=== PATIENT | female | born 1980 | race Caucasian/White ===

== ENCOUNTER 2018-05-10 17:56 | Emergency (ER) | payer OTHER ==
[2018-05-10] MEDS ORDERED: NORCO 5-325 TA1 EACH PO (20:53)
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
== END 2018-05-10 21:08 | disposition home or self-care (01) ==
LOC: ED 17:56
DX: M79.604 Pain in right leg (principal); V49.9XXA Car occupant (driver) (passenger) injured in unspecified traffic accident, initial encounter; Z88.8 Allergy status to other drugs, medicaments and biological substances; Z88.5 Allergy status to narcotic agent
CPT/HCPCS: 71260; 72125; 73590; 73610; 73630; 74177; 80053; 81001; 85025; 85610; 85730; 96374; 96375; 99284; G0480; J1170; J1885; J2060; J2405; Q9967